=== PATIENT | female | born 1950 | race Hispanic/Latino ===

== ENCOUNTER → 2017-08-12 | Day surgery (SDC) | payer OTHER, MEDICARE ==
[2017-08-10 10:13] LABS: BASOPHILS % 0.6 % (0.0-1.0); EOSINOPHILS # (AUTO) 0.1 (0.0-0.4); EOSINOPHILS % 1.3 % (0.0-6.0); HEMATOCRIT 40.6 % (34.2-44.1); HEMOGLOBIN 13.6 g/dL (12.0-16.0); LYMPHOCYTES # (AUTO) 2.7 (1.0-3.2); LYMPHOCYTES % 39.2 % (18.0-39.1); MEAN CORPUSCULAR HEMOGLOBIN 31.6 pg (28-32); MEAN CORPUSCULAR HGB CONC 33.5 g/dL (31-35); MEAN CORPUSCULAR VOLUME 94.4 fL (81-99); MONOCYTES # (AUTO) 0.6 (0.2-0.8); MONOCYTES % 8.2 % (4.4-11.3); NEUTROPHILS # (AUTO) 3.4 (2.1-6.9); NEUTROPHILS % 50.4 % (38.7-80.0); PLATELET COUNT 285 x10e3/uL (140-360)
[2017-08-10 10:27] LABS: BILIRUBIN,URINE NEGATIVE (NEGATIVE); CLARITY,URINE SL CLOUDY (CLEAR); COLOR,URINE YELLOW (YELLOW); KETONES,URINE NEGATIVE (NEGATIVE); LEUKOCYTE ESTERASE ,URINE 1+ (NEGATIVE); NITRITE,URINE NEGATIVE (NEGATIVE); PROTEIN,URINE DIPSTICK NEGATIVE (NEGATIVE); URINE UROBILINOGEN 0.2 mg/dL (0.2 - 1)
[2017-08-10 10:31] LABS: ALANINE AMINOTRANSFERASE 66 IU/L (0-55); ALBUMIN 4.2 g/dL (3.5-5.0); ALBUMIN/GLOBULIN RATIO 1.2 (0.8-2.0); ALKALINE PHOSPHATASE 81 IU/L (40-150); ANION GAP 14.8 mmol/L (8-16); BLOOD UREA NITROGEN 13 mg/dL (7-26); BUN/CREATININE RATIO 18 (6-25); CALCIUM 9.8 mg/dL (8.4-10.2); CARBON DIOXIDE 25 mmol/L (22-29); CHLORIDE 107 mmol/L (98-107); CREATININE, SERUM 0.71 mg/dL (0.57-1.11); EST GLOMERULAR FILTRATION RATE > 60 ML/MIN (60-); GLUCOSE 118 mg/dL (74-118); POTASSIUM 4.8 mmol/L (3.5-5.1); SODIUM 142 mmol/L (136-145)
--- NOTE | 2017-08-10 11:30 | Diagnostic Imaging Report ---
PROCEDURE:CHEST 2 VIEWS TECHNIQUE:PA and lateral chest INDICATION:Preoperative evaluation COMPARISON:None. FINDINGS: Calcified granuloma in the left midlung. Otherwise, clear lungs. No pleural effusions. Normal cardiomediastinal silhouette and pulmonary vasculature. Intact skeleton with mild degenerative disc disease. CONCLUSION: No acute abnormality. Dictated by: Neil Knapp M.D. on 08/10/2017 at 11:32 Electronically approved by: Neil Knapp M.D. on 08/10/2017 at 11:32
[~2017-08-12] MED LIST: ATENOLOL50 MG PO; ATORVASTATIN CA20 MG PO; BUPIVACAINE 0.25%/EPI 30ML SDV INJ ONE; DEXAMETHASONE SOD PHOS INJ 4 MG/ML VIAL ONE; EPHEDRINE SULFATE INJ 50 MG/10 ML SYR ONE; FENTANYL CITRATE/PF 100MCG/2 ML INJ ONE; GLYCOPYRROLATE INJ 1MG/ 5 ML SYR ONE; HYDROCODONE/APAP 7.5MG-325MG 1 EA TAB ONE; IOPAMIDOL 200 MG/ML 20 ML VIAL IT ONE; LIDOCAINE HCL 2% LOCAL INJ 5 ML SDV VIAL INJ ONE; METFORMIN HCL500 M2 PO; MIDAZOLAM HCL 2 MG/2 ML VIAL ONE; NEOSTIGMINE 5 MG/5ML SYR ONE; ONDANSETRON HCL INJ 2 MG/ML VIAL ONE; PHENYLEPHRINE HCL 1% 10 MG/ML VIAL ONE; PROPOFOL IV EMULSION 10 MG/ML 20 ML VIAL ONE; ROCURONIUM BROMIDE 10 MG/ML 5ML VIAL ONE; SEVOFLURANE INHAL SOLN 250 ML PEN BTL ONE
--- OUTSIDE RECORDS SUMMARY | 2017-08-12 07:25 | XMS REPORT ---
Author [facility] Address Unknown Phone Unavailable Care Team Providers Care Heat Treating Operator Name Role Phone MARY MOREJON Unavailable Unavailable Problems This patient has no known problems. Allergies, Adverse Reactions, Alerts This patient has no known allergies or adverse reactions. Medications This patient has no known medications. Results Test Description Test Time Test Comments Text Results Atomic Results Result Comments CHEST 2 VIEWS [place] [address] Patient Name: SCARLETT GUZMAN MR #: [id number] : 1950 Age/Sex: 66/F Req # : [id number] Adm Physician: Ordered by: MARY MOREJON MD Report #: [id number] Location: OR Room/Bed: Procedure: [id number] DX/CHEST 2 VIEWS Exam Date: 08/10/17 Exam Time : 1000 REPORT STATUS: Signed PROCEDURE: CHEST 2 VIEWS TECHNIQUE: PA and lateral chest INDICATION: Preoperative evaluation COMPARISON: None. FINDINGS: Calcified granuloma in the left midlung. Otherwise, clear lungs. No pleural effusions. Normal cardiomediastinal silhouette and pulmonary vasculature. Intact skeleton with mild degenerative disc disease. CONCLUSION: No acute abnormality. Dictated by: Spencer Knapp M.D. on 08/10/2017 at 11:32 Electronically approved by: Spencer Knapp M.D. on 08/10/2017 at 11:32 Dictated By: SPENCER KNAPP MD 1132 Transcribed By: JULIA on 08/10/17 1132 COPY TO: MARY MOREJON MD
--- NOTE | 2017-08-12 13:11 | Operative Report ---
DATE OF PROCEDURE: August 12, 2017 PREOPERATIVE DIAGNOSIS: Cholecystitis and cholelithiasis. POSTOPERATIVE DIAGNOSIS: Cholecystitis and cholelithiasis. OPERATION PERFORMED: Laparoscopic cholecystectomy. ANESTHESIA: General. COMPLICATIONS: None. ESTIMATED BLOOD LOSS: Minimal. DESCRIPTION OF PROCEDURE: With the patient lying in bed in the supine position, under good general endotracheal anesthesia, the abdomen was prepped with Betadine solution and draped in the usual manner. A Veress needle was introduced into the umbilicus, and pneumoperitoneum was established without any difficulty. An 11-mm trocar was placed into the umbilicus, and a 10-mm video laparoscope was placed into the intraabdominal cavity. Under direct vision, three 5-mm trocars were placed in the right subcostal region. Video laparoscopy at this point revealed the liver to have significant fatty infiltration. The gallbladder was totally covered up with adhesions all the way up to the top. The rest of the abdominal exploration was otherwise within normal limits. The adhesions to the gallbladder were then slowly and carefully taken down. The peritoneum overlying the neck of the gallbladder was then opened, and the cystic duct was identified. The cystic duct was followed to its junction with the common duct. The cystic duct was then circumferentially dissected away from the common duct, doubly clipped and divided. The cystic artery was similarly doubly clipped and divided. The gallbladder was then slowly and carefully taken off the liver bed using the cautery scissors, and perfect hemostasis was ascertained. The gallbladder was placed in a pouch and removed through the umbilicus without any difficulty. Video laparoscopy was then again carried out. The liver bed was found to be perfectly dry. All of the excess fluid was aspirated. The pneumoperitoneum was evacuated, and all the trocars were removed under direct vision. The midline fascia at the umbilicus was then closed with [id number] of #0 Vicryl. All layers were infiltrated on the way out with solution of 1/4 percent Marcaine. Subcutaneous tissue was approximated with 3-0 Vicryl, and the skin was closed with subcuticular 5-0 Vicryl. Benzoin, Steri-Strips and Band-Aids were applied. The sponge, lap and needle count was correct. Patient tolerated the procedure well and returned to the recovery room in stable condition. Job#: [id number]
== END | disposition home or self-care (01) ==
LOC: OR 07:23
PROVIDERS: ATTEND Surgery
DX: K80.10 Calculus of gallbladder with chronic cholecystitis without obstruction (principal); K76.0 Fatty (change of) liver, not elsewhere classified; K82.8 Other specified diseases of gallbladder; M19.90 Unspecified osteoarthritis, unspecified site; I10 Essential (primary) hypertension; E11.9 Type 2 diabetes mellitus without complications; K21.9 Gastro-esophageal reflux disease without esophagitis; Z01.810 Encounter for preprocedural cardiovascular examination; Z01.812 Encounter for preprocedural laboratory examination; Z01.818 Encounter for other preprocedural examination; Z79.84 Long term (current) use of oral hypoglycemic drugs
CPT/HCPCS: 36415 ×2; 47562; 71046; 80053; 81003; 82948; 85025; 88304; 93005; C1766; J1100; J2001; J2250; J2370; J2405; Q9966

== ENCOUNTER → 2021-01-14 | Outpatient (CLI) | payer MEDICARE ==
[~2021-01-14] MED LIST changes: -BUPIVACAINE 0.25%/EPI 30ML SDV INJ ONE; -DEXAMETHASONE SOD PHOS INJ 4 MG/ML VIAL ONE; -EPHEDRINE SULFATE INJ 50 MG/10 ML SYR ONE; -FENTANYL CITRATE/PF 100MCG/2 ML INJ ONE; -GLYCOPYRROLATE INJ 1MG/ 5 ML SYR ONE; -HYDROCODONE/APAP 7.5MG-325MG 1 EA TAB ONE; -IOPAMIDOL 200 MG/ML 20 ML VIAL IT ONE; -LIDOCAINE HCL 2% LOCAL INJ 5 ML SDV VIAL INJ ONE; -MIDAZOLAM HCL 2 MG/2 ML VIAL ONE; -NEOSTIGMINE 5 MG/5ML SYR ONE; -ONDANSETRON HCL INJ 2 MG/ML VIAL ONE; -PHENYLEPHRINE HCL 1% 10 MG/ML VIAL ONE; -PROPOFOL IV EMULSION 10 MG/ML 20 ML VIAL ONE; -ROCURONIUM BROMIDE 10 MG/ML 5ML VIAL ONE; -SEVOFLURANE INHAL SOLN 250 ML PEN BTL ONE
== END ==
LOC: RAD 08:36
PROVIDERS: ATTEND Family Medicine
DX: M25.562 Pain in left knee (principal)